=== PATIENT | female | born 1990 | race Caucasian/White ===

== ENCOUNTER 2017-02-26 16:47 | Emergency (ER) | payer SELFPAY ==
[~2017-02-26] VITALS: Ht 165.1 cm; Wt 61.2 kg
[2017-02-26] MEDS: Ketorolac 60mg Inj IM ONE ×2 (17:36→17:42)
[2017-02-26 18:42] VITALS: BP 123/81
[2017-02-26 18:44] VITALS: BP 123/81
--- NOTE | 2017-02-26 20:18 | Emergency Room Report ---
History of Present Illness General Chief Complaint: Abdominal Pain Source: Patient Present Illness HPI The patient is a 26-year-old female presenting for abdominal pain. She states that her last menstrual period was one month prior and she just began current cycle today. It is described as an 8/10 dull ache to the mid lower abdomen and does not radiate. Described as a cramping sensation. She states that she has tried multiple homeopathic medications which have not been helping. She also admits to nausea. She denies any other symptoms including F, chills, V, vaginal DC, dysuria, back pain Allergies: Coded Allergies: No Known Allergies (Unverified , 02/26/17) Patient History Past Medical History: see triage record Pertinent Family History: none Last Menstrual Period: on period Reviewed Nursing Documentation: PMH: Agreed, PSxH: Agreed Nursing Documentation-PMH Past Medical History: No History, Except For History Of Psychiatric Problem: Yes - PTSD, anxiety Review of Systems All Other Systems: negative except mentioned in HPI Physical Exam Vital Signs Date Time Temp Pulse Resp B/P Pulse Ox O2 Delivery O2 Flow Rate FiO2 02/26/17 17:01 97.9 72 16 123/81 99 Room Air Sp02 EP Interpretation: reviewed, normal General Appearance: no apparent distress, alert, GCS 15, non-toxic Head: normocephalic, atraumatic Eyes: bilateral eye PERRL, bilateral eye normal inspection ENT: hearing grossly normal, normal pharynx, no angioedema, normal voice Neck: full range of motion, supple/symm/no masses Gastrointestinal: normal bowel sounds, non tender, soft, non-distended, no guarding, no rebound Musculoskeletal: back normal, gait/station normal, normal range of motion, non- tender, calf tenderness Neurologic: alert, oriented x3, responsive, motor strength/tone normal, sensory intact, speech normal Psychiatric: judgement/insight normal, memory normal, mood/affect normal, no suicidal/homicidal ideation Skin: normal color, no rash, warm/dry, well hydrated Medical Decision Making PA Attestation Dr. Mcneil is my supervising physician. Patient management was discussed with my supervising physician Diagnostic Impression: Primary Impression: DUB (dysfunctional uterine bleeding) ER Course The patient is a 26-year-old female presenting for abdominal pain Differential diagnosis considered but not limited to: UTI, vaginitis, pyelonephritis, pyelonephrosis, PID, ectopic , DUB, among others PE: Vitals WNL. NAD. Abdomen: Normal appearance. Non distended. No ecchymosis. Normal BS. Non TTP. No McBurney point tenderness. No guarding. No CVA tenderness Pt refused UA and test Toradol and zofran ordered. The patient has decided to leave [place] as she does not want medications. She understands the risks associated with leaving before adequate diagnosis and treatment. Pt declines Last Vital Signs Date Time Temp Pulse Resp B/P Pulse Ox O2 Delivery O2 Flow Rate FiO2 02/26/17 18:44 97.9 67 16 123/81 99 Room Air Status: improved Disposition: AGAINST MEDICAL ADVICE Condition: Stable Referrals: NOT CHOSEN IPA/,REFERRING (PCP) Additional Instructions: SENDY ARANGO Feb 26, 2017 20:18
== END 2017-02-26 18:00 | disposition left against medical advice (07) ==
LOC: EMR 18:00
DX: N93.8 Other specified abnormal uterine and vaginal bleeding (principal)
CPT/HCPCS: 99282